=== PATIENT | male | born 1990 ===

== ENCOUNTER 2022-01-21 19:52 | Emergency (ER) | payer SELFPAY ==
[2022-01-21 23:35] VITALS: BP 138/88
== END 2022-01-21 23:35 | disposition home or self-care (01) | DRG 605 ==
LOC: ED 19:52
DX: S01.81XA Laceration without foreign body of other part of head, initial encounter (principal); V43.52XA Car driver injured in collision with other type car in traffic accident, initial encounter; S00.81XA Abrasion of other part of head, initial encounter